=== PATIENT | female | born 1975 | race Two or more races ===

== ENCOUNTER 2024-12-22 23:03 | Emergency (ER) | payer MEDICARE, MEDICAID, SELFPAY ==
[2024-12-22 23:11] VITALS: BP 115/57; PULSE 86; RESP 18; TEMP 36.7; O2SAT 94; BMI 29.3
--- OUTSIDE RECORDS SUMMARY | 2024-12-23 00:33 | XMS_ITS | Encounter Summary ---
Author Organization [facility] Address [address] [place] [address] Care Team Providers Care Accelerator Systems Director Name Role Phone Negin Yi MD Primary Care Provider Cecilia Aguilar MD Primary Care Provider [phone] Reason for Visit * Reason Onset Date Comments medication problems 07/07/2018 Encounter Details Date Type Department Care Team Description 07/07/2018 Telephone Internal Medicine - [address], [address] [place] [address] Negin Yi MD medication problems Social History Tobacco Use Types Packs/Day Years Used Date Smoking Tobacco: Every Day Cigarettes 0.3 11 Smokeless Tobacco: Never Alcohol Use Standard Drinks/Week Comments Yes 0 (1 standard drink = 0.6 oz pur e alcohol) occ Sex Assigned at Date Recorded Not on file documented as of this encounter Miscellaneous Notes * Telephone Encounter - Yevgeniy Martines M.A. - 08/04/2018 3:07 PM EDT Lst seen 06/03/18 F/up 10/25/18 with you * Telephone Encounter - Negin Yi MD - 07/29/2018 1:31 PM EDT Lets enter it electronically * Telephone Encounter - Yevgeniy Martines M.A. - 07/28/2018 2:47 PM EDT Please advise * Telephone Encounter - Krissy Abdi - 07/20/2018 3:48 PM EDT Patient advising that previously the Vitamen B that Dr. Yi prescribed ( Vitamin B-12 1000 MCG Oral Tablet; TAKE 1 TABLET DAILY DIRECTED; She says that this was covered in the past (2014) and that [facility] * Telephone Encounter - Savanah Andre - 07/14/2018 10:07 AM EDT Pt was at the [address] [place] [address] front desk coordinator. Notify us that the insurance don't cover her vitamer D Prescription can they send to the pharmacy an alternative. * Telephone Encounter - Yevgeniy Martines M.A. - 07/07/2018 3:20 PM EDT Please advise * Telephone Encounter - Rome Hernandez - 07/07/2018 1:41 PM EDT What is the name of the medication patient is having a problem with?: vitamin d What is the problem?: insurance doesn't cover can we send an alternative Is the patient calling about the problem? YES If the patient is not the caller who is? Is this a NEW medication?: How long has the patient been taking this medication? Who prescribed this medication for the patient? Negin Yi Who is patients PCP?: Negin Yi [place] / Plan[place] / Product Type: MEDICARE [id number] documented in this encounter Plan of Treatment Not on file documented as of this encounter Visit Diagnoses Diagnosis Memory loss- Primary documented in this encounter Care Teams Accelerator Systems Director Relationship Specialty Start Date End Date Negin Yi MD PCP - General Internal Medicine 12/01/17 11/24/18 Cecilia Bhakta MD PCP - General Internal Medicine 11/25/18 documented as of this encounter
--- OUTSIDE RECORDS SUMMARY | 2024-12-23 00:33 | XMS_ITS | Encounter Summary ---
Author Organization [facility] Address [address] [place] [address] Care Team Providers Care Career Services Director Name Role Phone eCcilia Bhakta MD Primary Care Provider [phone] Reason for Visit * Reason Onset Date Comments Error 11/25/2023 Encounter Details Date Type Department Care Team Description 11/25/2023 Telephone Pulmonology - [place] 175 [facility] [address] [place] [address] Kitty Light MD [address] [place] [address] Error Social History Tobacco Use Types Packs/Day Years Used Date Smoking Tobacco: Every Day Cigarettes 0.3 11 Smokeless Tobacco: Never Comments:1 pack lasts 2 days . Alcohol Use Standard Drinks/Week Comments Not Currently 0 (1 standard drink = 0.6 oz pur e alcohol) occ Sex Assigned at Date Recorded Not on file documented as of this encounter Plan of Treatment Not on file documented as of this encounter Visit Diagnoses Not on filedocumented in this encounter Care Teams Career Services Director Relationship Specialty Start Date End Date Cecilia Bhakta MD PCP - General Internal Medicine 11/25/18 documented as of this encounter
--- OUTSIDE RECORDS SUMMARY | 2024-12-23 00:33 | XMS_ITS | Encounter Summary ---
Author Organization [facility] Address [address] [place] [address] Care Team Providers Care Auto Parts Salesperson Name Role Phone Cecilia Bhakta MD Primary Care Provider [phone] Reason for Visit * Reason Onset Date Comments Provider Call Back 08/20/2020 Encounter Details Date Type Department Care Team Description 08/20/2020 Telephone Internal Medicine - [address], [address] [place], [place] [id number] Cecilia Bhakta MD [address] [place] [phone] Provider Call Back Social History Tobacco Use Types Packs/Day Years Used Date Smoking Tobacco: Every Day Cigarettes 0.3 11 Smokeless Tobacco: Never Comments:1 pack lasts 2 days Alcohol Use Standard Drinks/Week Comments Yes 0 (1 standard drink = 0.6 oz pur e alcohol) occ Sex Assigned at Date Recorded Not on file documented as of this encounter Miscellaneous Notes * Telephone Encounter - Quin Ann M.A. - 08/20/2020 2:51 PM EDT Scheduled for telehealth visit September 13 @ 9:30AM. * Telephone Encounter - Cecilia Bhakta MD - 08/20/2020 2:09 PM EDT September either audio OR in person visit for follow-up * Telephone Encounter - Quin Ann M.A. - 08/20/2020 1:26 PM EDT [facility] notes found on your desk for review tomorrow. * Telephone Encounter - Quin Ann M.A. - 08/20/2020 1:08 PM EDT Pls advise, ortho referral pended (no preference where), dx lower back pain, went to the [facility] ER 3wks due to back pain/swelling; was given muscle relaxer but it's not working, has seen PT already but states it does not help, imaging is recommended. * Telephone Encounter - Rob Rob - 08/20/2020 12:14 PM EDT Caller requesting call back from provider: Is the caller the patient? YES If caller is not the patient, what is the callers name? N/A Callers relationship to patient? N/A If person calling is not the patient themselves, is there a verbal release in FYI or permanent comments for this person: NO Reason for call back: Patient needs an order to see ortho and may need a MRI also. Has ortho appt for 09/26/20 Caller offered to speak with the nurse for assistance: YES Response: Patient offered to speak with nurse for assistance and patient agreed. Message forwarded to nurse. documented in this encounter Plan of Treatment Not on file documented as of this encounter Visit Diagnoses Not on filedocumented in this encounter Care Teams Auto Parts Salesperson Relationship Specialty Start Date End Date Cecilia Bhakta MD PCP - General Internal Medicine 11/25/18 documented as of this encounter
--- OUTSIDE RECORDS SUMMARY | 2024-12-23 00:33 | XMS_ITS | Encounter Summary ---
Author Organization [facility] Address [address] [place] [address] Care Team Providers Care Radiosonde Specialist Name Role Phone Casey Pritchett MD Primary Care Provider Unavail able Jonathon Ariza MD Primary Care Provider [phone] Negin Yi MD Primary Care Provider Unava ilable Cecilia Bhakta MD Primary Care Provider [phone] Encounter Details Date Type Department Care Team Description 11/25/2012 Supervisor Pyrotechnic Loading Report Medical Records [address] [place] [address] Radha Quarles NP Social History Tobacco Use Types Packs/Day Years Used Date Smoking Tobacco: Never Assessed Sex Assigned at Date Recorded Not on file documented as of this encounter Plan of Treatment Not on file documented as of this encounter Visit Diagnoses Not on filedocumented in this encounter Care Teams Radiosonde Specialist Relationship Specialty Start Date End Date Casey Pritchett MD PCP - General Internal Medicine 11/24/12 02/06/15 Jonathon Ariza MD [address] [place] [address] PCP - General Internal Medicine 02/07/15 11/30/17 Negin Yi MD [address] [place] [address] PCP - General Internal Medicine 12/01/17 11/24/18 Cecilia Bhakta MD [address] [place] [id number] PCP - General Internal Medicine 11/25/18 documented as of this encounter
--- OUTSIDE RECORDS SUMMARY | 2024-12-23 00:33 | XMS_ITS | Encounter Summary ---
Author Organization [facility] Address [address] [place] [address] Care Team Providers Care Roller Print Tender Name Role Phone Casey Pritchett MD Primary Care Provider [facility] able Jonathon Ariza MD Primary Care Provider [phone] Negin Yi MD Primary Care Provider Unava ilable Cecilia Bhakta MD Primary Care Provider [phone] Encounter Details Date Type Department Care Team Description 06/07/2013 Crepe Sole Wire Brusher Report Medical Records [address] [place] [address] Radha Quarles NP Social History Tobacco Use Types Packs/Day Years Used Date Smoking Tobacco: Every Day Cigarettes 0.5 Smokeless Tobacco: Never Alcohol Use Standard Drinks/Week Comments Yes 0 (1 standard drink = 0.6 oz pur e alcohol) occ Sex Assigned at Date Recorded Not on file documented as of this encounter Plan of Treatment Not on file documented as of this encounter Visit Diagnoses Not on filedocumented in this encounter Care Teams Roller Print Tender Relationship Specialty Start Date End Date Casey Pritchett MD PCP - General Internal Medicine 11/24/12 02/06/15 Jonathon Ariza MD [address] [place] [address] PCP - General Internal Medicine 02/07/15 11/30/17 Negin Yi MD [address] [place] [address] PCP - General Internal Medicine 12/01/17 11/24/18 Cecilia Bhakta MD [address] [place] [address] PCP - General Internal Medicine 11/25/18 documented as of this encounter
--- OUTSIDE RECORDS SUMMARY | 2024-12-23 00:33 | XMS_ITS | Encounter Summary ---
Author Organization [facility] Address [address] [place] [address] Care Team Providers Care Card Sorter Name Role Phone Cecilia Bhakta MD Primary Care Provider [phone] Reason for Visit * Reason Onset Date Comments Provider Call Back 06/30/2022 Diabetes info rmation requested Encounter Details Date Type Department Care Team Description 06/30/2022 Telephone Internal Medicine - [address], [address] [place] [address] Cecilia Bhakta MD [address] [place] [phone] Provider Call Back (Diabetes information requested ) Social History Tobacco Use Types Packs/Day Years Used Date Smoking Tobacco: Every Day Cigarettes 0.3 11 Smokeless Tobacco: Never Comments:1 pack lasts 2 days Alcohol Use Standard Drinks/Week Comments Not Currently 0 (1 standard drink = 0.6 oz pur e alcohol) occ Sex Assigned at Date Recorded Not on file COVID-19 Exposure Response Date Recorded In the last 10 days, have yo u been in contact with someone who was confirmed or suspected to have Coronavirus/COVID-19? No / Unsure 07/03/2022 11:58 AM EDT documented as of this encounter Miscellaneous Notes * Telephone Encounter - Cecilia Bhakta MD - 07/02/2022 10:57 AM EDT Patient has an appointment with me tomorrow, will talk to her then * Telephone Encounter - Eugene Krause - 06/30/2022 12:04 PM EDT Patient requesting more information regarding diabetes such as what she can injest and what to avoid. documented in this encounter Plan of Treatment Not on file documented as of this encounter Visit Diagnoses Not on filedocumented in this encounter Care Teams Card Sorter Relationship Specialty Start Date End Date Cecilia Bhakta MD PCP - General Internal Medicine 11/25/18 documented as of this encounter
--- OUTSIDE RECORDS SUMMARY | 2024-12-23 00:33 | XMS_ITS | Encounter Summary ---
Author Organization [facility] Address [address] [place] [address] Care Team Providers Care Brick Siding Applicator Name Role Phone Negin Yi MD Primary Care Provider Cecilia Aguilar MD Primary Care Provider [phone] Reason for Visit * Reason Comments E-prescribe Rx Request Encounter Details Date Type Department Care Team Description 05/28/2018 [facility] Internal Medicine [address], [address] [place] [address] Negin Yi MD E-prescribe Rx Request Social History Tobacco Use Types Packs/Day Years Used Date Smoking Tobacco: Every Day Cigarettes 0.3 11 Smokeless Tobacco: Never Alcohol Use Standard Drinks/Week Comments Yes 0 (1 standard drink = 0.6 oz pur e alcohol) occ Sex Assigned at Date Recorded Not on file documented as of this encounter Miscellaneous Notes * Telephone Encounter - Niesha MckeonPBaoNBao - 05/28/2018 1:23 PM EST appt 06/03/2018 Negin Yi Sick visit 01/2018 documented in this encounter Plan of Treatment Not on file documented as of this encounter Visit Diagnoses Not on filedocumented in this encounter Care Teams Brick Siding Applicator Relationship Specialty Start Date End Date Negin Yi MD PCP - General Internal Medicine 12/01/17 11/24/18 Cecilia Bhakta MD PCP - General Internal Medicine 11/25/18 documented as of this encounter
--- OUTSIDE RECORDS SUMMARY | 2024-12-23 00:33 | XMS_ITS | Encounter Summary ---
Author Organization [facility] Address [address] [place] [address] Care Team Providers Care Embroidery Supervisor Name Role Phone Cecilia Bhakta MD Primary Care Provider [phone] Reason for Visit * Reason Onset Date Comments Faxed Refill 04/09/2023 Encounter Details Date Type Department Care Team Description 04/09/2023 Refill Internal Medicine - [place] 175 [facility], [address] [place] [address] Cecilia Bhakta MD [address] [place] [phone] Faxed Refill Social History Tobacco Use Types Packs/Day Years Used Date Smoking Tobacco: Every Day Cigarettes 0.3 11 Smokeless Tobacco: Never Comments:1 pack lasts 2 days . Alcohol Use Standard Drinks/Week Comments Not Currently 0 (1 standard drink = 0.6 oz pur e alcohol) occ Sex Assigned at Date Recorded Not on file documented as of this encounter Miscellaneous Notes * Telephone Encounter - Eun Hawthorne - 04/09/2023 1:59 PM EST Last filled 09/24/2022 * Telephone Encounter - Sophie Urias - 04/09/2023 10:58 AM EST [place] 07/03/2022 Nov documented in this encounter Plan of Treatment Not on file documented as of this encounter Visit Diagnoses Diagnosis Primary insomnia Persistent disorder of initiating or maintaining sleep documented in this encounter Care Teams Embroidery Supervisor Relationship Specialty Start Date End Date Cecilia Bhakta MD PCP - General Internal Medicine 11/25/18 documented as of this encounter
--- OUTSIDE RECORDS SUMMARY | 2024-12-23 00:33 | XMS_ITS | Encounter Summary ---
Author Organization [facility] Address [address] [place] [address] Care Team Providers Care Switching Operator Name Role Phone Cecilia Bhakta MD Primary Care Provider [phone] Reason for Visit * Reason Onset Date Comments refill request 09/27/2020 Encounter Details Date Type Department Care Team Description 09/27/2020 Telephone Internal Medicine - [place] 175 [facility], [address] [place], [place] [phone] Cecilia Bhakta MD [address] [place] [phone] refill request Social History Tobacco Use Types Packs/Day Years Used Date Smoking Tobacco: Every Day Cigarettes 0.3 11 Smokeless Tobacco: Never Comments:1 pack lasts 2 days Alcohol Use Standard Drinks/Week Comments Yes 0 (1 standard drink = 0.6 oz pur e alcohol) occ Sex Assigned at Date Recorded Not on file COVID-19 Exposure Response Date Recorded In the last month, have you been in contact with someone who was confirmed or suspected to have Coronavirus / COVID-19? No / Unsure 09/27/2020 10:54 AM EDT documented as of this encounter Miscellaneous Notes * Telephone Encounter - June Ruano - 09/27/2020 9:36 AM EDT Magdy 09/13/20 documented in this encounter Plan of Treatment Not on file documented as of this encounter Visit Diagnoses Not on filedocumented in this encounter Care Teams Switching Operator Relationship Specialty Start Date End Date Cecilia Bhakta MD PCP - General Internal Medicine 11/25/18 documented as of this encounter
--- OUTSIDE RECORDS SUMMARY | 2024-12-23 00:33 | XMS_ITS | Encounter Summary ---
Author Organization [facility] Address [address] [place] [address] Care Team Providers Care Cage Shift Manager Name Role Phone Cecilia Bhakta MD Primary Care Provider [phone] Reason for Visit * Reason Onset Date Comments DME Request 01/12/2023 Encounter Details Date Type Department Care Team Description 01/12/2023 Telephone Pulmonology - [place] [address] [facility] [address] [place] [address] Kitty Light MD [address] [place] [phone] DME Request Social History Tobacco Use Types Packs/Day [...] suspected to have Coronavirus/COVID-19? No / Unsure 01/09/2023 9:08 AM EDT documented as of this encounter Miscellaneous Notes * Telephone Encounter - Florecita Pinon - 01/12/2023 1:36 PM EDT Received dme fax from [facility] pharmacy confirmation of order NOV 01/15/23 CASE 07/11/22 documented in this encounter Plan of Treatment Not on file documented as of this encounter Visit Diagnoses Not on filedocumented in this encounter Care Teams Cage Shift Manager Relationship Specialty Start Date End Date Cecilia Bhakta MD PCP - General Internal Medicine 11/25/18 documented as of this encounter
--- OUTSIDE RECORDS SUMMARY | 2024-12-23 00:33 | XMS_ITS | Encounter Summary ---
Author Organization [facility] Address [address] [place] [address] Care Team Providers Care Livestock Breeder Name Role Phone Cecilia Bhakta MD Primary Care Provider [phone] Reason for Visit * Reason Onset Date Comments refill request 12/29/2019 Encounter Details Date Type Department Care Team Description 12/29/2019 Refill Internal Medicine - [address], [address] [place], [place] [id number] Cecilia Bhakta MD [address] [place] [phone] refill request Social History Tobacco Use Types Packs/Day Years Used Date Smoking Tobacco: Every Day Cigarettes 0.3 11 Smokeless Tobacco: Never Alcohol Use Standard Drinks/Week Comments Yes 0 (1 standard drink = 0.6 oz pur e alcohol) occ Sex Assigned at Date Recorded Not on file documented as of this encounter Miscellaneous Notes * Telephone Encounter - Shey Martines M.A. - 12/29/2019 4:08 PM EDT Lab Results Component Value Date NA 138 11/25/2018 K 4.2 11/25/2018 CO2 29 11/25/2018 CL 103 11/25/2018 BUN 10 11/25/2018 CREAT 0.97 11/25/2018 GLU 159 11/25/2018 ALB 3.7 11/25/2018 SGOT 19 11/25/2018 SGPT 25 11/25/2018 TBILI 0.2 11/25/2018 ALKPHOS 137 11/25/2018 TP 6.7 11/25/2018 CA 8.9 11/25/2018 GFR > 60 11/25/2018 * Telephone Encounter - Gemini Emil - 12/29/2019 2:56 PM EDT CASE [id number] NONE 30 day supply documented in this encounter Plan of Treatment Not on file documented as of this encounter Visit Diagnoses Not on filedocumented in this encounter Care Teams Livestock Breeder Relationship Specialty Start Date End Date Cecilia Bhakta MD PCP - General Internal Medicine 11/25/18 documented as of this encounter
--- OUTSIDE RECORDS SUMMARY | 2024-12-23 00:33 | XMS_ITS | Encounter Summary ---
Author Organization [facility] Address [address] [place] [address] Care Team Providers Care Wired Music Operator Name Role Phone Negin Yi MD Primary Care Provider Cecilia Aguilar MD Primary Care Provider [phone] Encounter Details Date Type Department Care Team Description 02/18/2018 Release of Information Medical Records [address] [place] [address] Abstract, Provider Social History Tobacco Use Types Packs/Day Years [...] on filedocumented in this encounter Care Teams Wired Music Operator Relationship Specialty Start Date End Date Negin Yi MD PCP - General Internal Medicine 12/01/17 11/24/18 Cecilia Bhakta MD PCP - General Internal Medicine 11/25/18 documented as of this encounter
--- OUTSIDE RECORDS SUMMARY | 2024-12-23 00:33 | XMS_ITS | Encounter Summary ---
Author Organization [facility] Address [address] [place] [address] Care Team Providers Care Technical Support Agent Name Role Phone Cecilia Bhakta MD Primary Care Provider [phone] Reason for Visit * Reason Comments E-prescribe Rx Request Encounter Details Date Type Department Care Team Description 11/13/2023 Refill Pulmonology - [place] 175 [facility] [address] [place] [phone] Kitty Light MD [address] [place] [phone] E-prescribe Rx Request Social History Tobacco Use [...] encounter Miscellaneous Notes * Telephone Encounter - Maye Latham - 11/13/2023 2:00 PM EDT NOV- 12/18/23 CASE- 07/11/22 documented in this encounter Plan of Treatment Not on file documented as of this encounter Visit Diagnoses Diagnosis MARK (obstructive sleep apnea) Obstructive sleep apnea (adult) (pediatric) documented in this encounter Care Teams Technical Support Agent Relationship Specialty Start Date End Date Cecilia Bhakta MD PCP - General Internal Medicine 11/25/18 documented as of this encounter
--- OUTSIDE RECORDS SUMMARY | 2024-12-23 00:33 | XMS_ITS | Encounter Summary ---
Author Organization [facility] Address [address] [place] [address] Care Team Providers Care Resistance Machine Welder Setter Name Role Phone Cecilia Bhakta MD Primary Care Provider [phone] Encounter Details Date Type Department Care Team Description 06/06/2020 Computer Programming Supervisor Report Medical Records [address] [place] [address] Rehab., [place] Social History Tobacco Use Types Packs/Day Years [...] or suspected to have Coronavirus / COVID-19? Unable to assess 05/21/2020 8:24 AM EST documented as of this encounter Plan of Treatment Not on file documented as of this encounter Visit Diagnoses Not on filedocumented in this encounter Care Teams Resistance Machine Welder Setter Relationship Specialty Start Date End Date Cecilia Bhakta MD PCP - General Internal Medicine 11/25/18 documented as of this encounter
--- OUTSIDE RECORDS SUMMARY | 2024-12-23 00:33 | XMS_ITS | Encounter Summary ---
Author Organization [facility] Address [address] [place] [address] Care Team Providers Care Risk Manager Name Role Phone Casey Pritchett MD Primary Care Provider [facility] able Jonathon Ariza MD Primary Care Provider [phone] Negin Yi MD Primary Care Provider Unava arable Cecilia Bhakta MD Primary Care Provider [phone] Encounter Details Date Type Department Care Team Description 12/15/2012 [place] Director Report Medical Records [address] [place] [address] Social History Tobacco Use Types Packs/Day Years Used Date Smoking Tobacco: Every Day Cigarettes 0.5 Alcohol Use Standard Drinks/Week Comments Yes 0 (1 standard drink = 0.6 oz pur e alcohol) occ Sex Assigned at Date Recorded Not on file documented as of this encounter Plan of Treatment Not on file documented as of this encounter Visit Diagnoses Not on filedocumented in this encounter Care Teams Risk Manager Relationship Specialty Start Date End Date Casey Pritchett MD PCP - General Internal Medicine 11/24/12 02/06/15 Jonathon Ariza MD [address] [place] [id number] PCP - General Internal Medicine 02/07/15 11/30/17 Negin Yi MD [address] [place] [address] PCP - General Internal Medicine 12/01/17 11/24/18 Cecilia Bhakta MD [address] [place] [id number] PCP - General Internal Medicine 11/25/18 documented as of this encounter
--- OUTSIDE RECORDS SUMMARY | 2024-12-23 00:33 | XMS_ITS | Encounter Summary ---
Author Organization [facility] Address [address] [place] [address] Care Team Providers Care Art Sales Consultant Name Role Phone Cecilia Bhakta MD Primary Care Provider [phone] Encounter Details Date Type Department Care Team Description 05/26/2023 Orders Only Medical Records [address] [place] [address] Cecilia Bhakta MD [address] [place] [phone] Social History Tobacco Use Types Packs/Day Years [...] on file documented as of this encounter Procedures Procedure Name Priority Date/Time Associated Diagnosis Comments OUTSIDE MAMMO Routine 05/14/2023 documented in this encounter Results * OUTSIDE MAMMO (05/14/2023) Cecilia Bhakta MD RADIOLOGY documented in this encounter Visit Diagnoses Not on filedocumented in this encounter Care Teams Art Sales Consultant Relationship Specialty Start Date End Date Cecilia Bhakta MD PCP - General Internal Medicine 11/25/18 documented as of this encounter
--- OUTSIDE RECORDS SUMMARY | 2024-12-23 00:33 | XMS_ITS | Encounter Summary ---
Author Organization [employer] [facility] Address [address] [place] [address] Care Team Providers Care Missile Inspector Name Role Phone Cecilia Bhakta MD Primary Care Provider [phone] Encounter Details Date Type Department Care Team Description 01/21/2024 Orders Only Internal Medicine - [place] [address] [facility], [address] [place] [address] Cecilia Bhakta MD [address] [place] [phone] Social History Tobacco Use Types Packs/Day Years [...] on filedocumented in this encounter Care Teams Missile Inspector Relationship Specialty Start Date End Date Cecilia Bhakta MD PCP - General Internal Medicine 11/25/18 documented as of this encounter
--- OUTSIDE RECORDS SUMMARY | 2024-12-23 00:33 | XMS_ITS | Encounter Summary ---
Author Organization [employer] [facility] Address [address] [place] [address] Care Team Providers Care Truck Dock Material Mover Name Role Phone Cecilia Bhakta MD Primary Care Provider [phone] Encounter Details Date Type Department Care Team Description 06/24/2022 Telephone Internal Medicine - [place] [address] [facility], [address] [place], [place] [id number] Cecilia Bhakta MD [address] [place] [phone] Social History Tobacco Use Types Packs/Day [...] suspected to have Coronavirus/COVID-19? No / Unsure 06/16/2022 12:39 PM EDT documented as of this encounter Plan of Treatment Not on file documented as of this encounter Visit Diagnoses Not on filedocumented in this encounter Care Teams Truck Dock Material Mover Relationship Specialty Start Date End Date Cecilia Bhakta MD PCP - General Internal Medicine 11/25/18 documented as of this encounter
--- OUTSIDE RECORDS SUMMARY | 2024-12-23 00:33 | XMS_ITS | Encounter Summary ---
Author Organization [facility] Address [address] [place] [address] Care Team Providers Care Finish Off Operator Name Role Phone Cecilia Bhakta MD Primary Care Provider [phone] Encounter Details Date Type Department Care Team Description 05/17/2020 Orders Only Physiatry - [place] [address] [place] [address] Álvaro Hartman PA-C Chronic low back pain, unspecified back pain laterality, unspecified whether sciatica present Social History Tobacco Use Types Packs/Day Years [...] have Coronavirus / COVID-19? No / Unsure 05/14/2020 2:41 PM EST documented as of this encounter Plan of Treatment Not on file documented as of this encounter Procedures Procedure Name Priority Date/Time Associated Diagnosis Comments MRI OF LUMBAR SPINE NO CONTRAST Routine 05/16/2020 Chronic low back pain, unspecified back pain laterality, unspecified whether sciatica present documented in this encounter Results * MRI OF LUMBAR SPINE NO CONTRAST (05/16/2020) Álvaro Hartman PA-C MRI [facility] [address] [facility] documented in this encounter Visit Diagnoses Diagnosis Chronic low back pain, unspecified back pain laterality, unspecified whether sciatica present documented in this encounter Care Teams Finish Off Operator Relationship Specialty Start Date End Date Cecilia Bhakta MD PCP - General Internal Medicine 11/25/18 documented as of this encounter
--- OUTSIDE RECORDS SUMMARY | 2024-12-23 00:34 | XMS_ITS | Encounter Summary ---
Author Organization [facility] Address [address] [place] [address] Care Team Providers Care Licensed Optician Name Role Phone Casey Pritchett MD Primary Care Provider [facility] able Jonathon Ariza MD Primary Care Provider [phone] Negin Yi MD Primary Care Provider Normava Cecilia Bosch MD Primary Care Provider [phone] Encounter Details Date Type Department Care Team Description 01/20/2014 Shingle Inspector Report Medical Records [address] [place] [address] Radha Quarles NP Social History Tobacco Use [...] on filedocumented in this encounter Care Teams Licensed Optician Relationship Specialty Start Date End Date Caesy Pritchett MD PCP - General Internal Medicine 11/24/12 02/06/15 Jonathon Ariza MD [address] [place] [address] PCP - General Internal Medicine 02/07/15 11/30/17 Negin Yi MD [address] [place] [address] PCP - General Internal Medicine 12/01/17 11/24/18 Cecilia Bhakta MD [address] [place] [address] PCP - General Internal Medicine 11/25/18 documented as of this encounter
--- OUTSIDE RECORDS SUMMARY | 2024-12-23 00:34 | XMS_ITS | Encounter Summary ---
Author Organization [facility] Address [address] [place] [address] Care Team Providers Care Web Site Project Manager Name Role Phone Casey Pritchett MD Primary Care Provider [facility] able Jonathon Ariza MD Primary Care Provider [phone] Negin Yi MD Primary Care Provider Unava ilCecilia Brandt MD Primary Care Provider [phone] Encounter Details Date Type Department Care Team Description 10/20/2013 Manager Statistical Report Medical Records [address] [place] [address] Radha Quarles NP Social History Tobacco Use [...] on filedocumented in this encounter Care Teams Web Site Project Manager Relationship Specialty Start Date End Date Casey Pritchett MD PCP - General Internal Medicine 11/24/12 02/06/15 Jonathon Ariza MD [address] [place] [address] PCP - General Internal Medicine 02/07/15 11/30/17 Negin Yi MD [address] [place] [address] PCP - General Internal Medicine 12/01/17 11/24/18 Cecilia Bhakta MD [address] [place] [address] PCP - General Internal Medicine 11/25/18 documented as of this encounter
--- OUTSIDE RECORDS SUMMARY | 2024-12-23 00:34 | XMS_ITS | Encounter Summary ---
Author Organization [facility] Address [address] [place] [address] Care Team Providers Care Filling Hand Name Role Phone Cecilia Bhakta MD Primary Care Provider [phone] Encounter Details Date Type Department Care Team Description 08/12/2021 Orders Only Medical Records [address] [place] [address] Jaguar Rascon PA-C Social History Tobacco Use Types Packs/Day Years [...] suspected to have Coronavirus/COVID-19? No / Unsure 08/02/2021 4:11 PM EDT documented as of this encounter Plan of Treatment Not on file documented as of this encounter Procedures Procedure Name Priority Date/Time Associated Diagnosis Comments OUTSIDE SLEEP STUDY Routine 07/11/2021 documented in this encounter Results * OUTSIDE SLEEP STUDY (07/11/2021) Jaguar Rascon PA-C PULMONOLOGY documented in this encounter Visit Diagnoses Not on filedocumented in this encounter Care Teams Filling Hand Relationship Specialty Start Date End Date Cecilia Bhakta MD PCP - General Internal Medicine 11/25/18 documented as of this encounter
--- OUTSIDE RECORDS SUMMARY | 2024-12-23 00:34 | XMS_ITS | Encounter Summary ---
Author Organization [facility] Address [address] [place] [address] Care Team Providers Care Business Development Representative Name Role Phone Casey Pritchett MD Primary Care Provider [facility] able Jonathon Ariza MD Primary Care Provider [phone] Negin Yi MD Primary Care Provider Unava ohCecilia Brandt MD Primary Care Provider [phone] Encounter Details Date Type Department Care Team Description 07/18/2013 Business Doc Medical Records [address] [place] [address] Abstract, Provider Social History Tobacco Use Types [...] on filedocumented in this encounter Care Teams Business Development Representative Relationship Specialty Start Date End Date Casey Pritchett MD PCP - General Internal Medicine 11/24/12 02/06/15 Jonathon Ariza MD [address] [place] [id number] PCP - General Internal Medicine 02/07/15 11/30/17 Negin Yi MD [address] [place] [address] PCP - General Internal Medicine 12/01/17 11/24/18 Cecilia Bhakta MD [address] [place] [address] PCP - General Internal Medicine 11/25/18 documented as of this encounter
--- OUTSIDE RECORDS SUMMARY | 2024-12-23 00:34 | XMS_ITS | Encounter Summary ---
Author Organization [facility] Address [address] [place] [address] Care Team Providers Care Soil Conservation Aide Name Role Phone Cecilia Bhakta MD Primary Care Provider [phone] Reason for Visit * Reason Onset Date Comments Medication 02/18/2019 Encounter Details Date Type Department Care Team Description 02/18/2019 Telephone Internal Medicine - [address], [address] [place], [place] [phone] Cecilia Bhakta MD [address] [place] [phone] Medication Social History Tobacco Use Types Packs/Day Years Used Date Smoking Tobacco: Every Day Cigarettes 0.3 11 Smokeless Tobacco: Never Alcohol Use Standard Drinks/Week Comments Yes 0 (1 standard drink = 0.6 oz pur e alcohol) occ Sex Assigned at Date Recorded Not on file documented as of this encounter Miscellaneous Notes * Telephone Encounter - Cecilia Bhakta MD - 02/23/2019 2:13 PM EST Sent trazodone * Telephone Encounter - Yevgeniy Martines M.A. - 02/22/2019 3:29 PM EST PLEASE ADVISE * Telephone Encounter - Florecita Burch - 02/22/2019 11:37 AM EST Patient calling checking on status * Telephone Encounter - Faby Urena M.A. - 02/22/2019 10:32 AM EST Please send trazadone to the pharmacy * Telephone Encounter - Racheal Lew - 02/21/2019 10:07 AM EST Patient is calling on status regarding her medication. She states that she saw Dr. Bhakta on 02/18/19 and doctor was changing her medication from mirtazapine (REMERON) 15 MG tablet to trazodone 50 mg but the pharmacy has not received anything as of yet. Patient states she needs her medication as soon as possible. Arcadio joe * Telephone Encounter - Justine Robbins - 02/18/2019 1:32 PM EST The patient and Dr. Bhakta spoke about the patient gettting put on trazadone to help her sleep atnight. Patient called us to see if the doctor put in the medication, the medication is not in her chart. Please advise. documented in this encounter Plan of Treatment Not on file documented as of this encounter Visit Diagnoses Not on filedocumented in this encounter Care Teams Soil Conservation Aide Relationship Specialty Start Date End Date Cecilia Bhakta MD PCP - General Internal Medicine 11/25/18 documented as of this encounter
--- OUTSIDE RECORDS SUMMARY | 2024-12-23 00:34 | XMS_ITS | Encounter Summary ---
Author Organization [facility] Address [address] [place] [address] Care Team Providers Care Lastex Thread Winder Name Role Phone Casey Pritchett MD Primary Care Provider [facility] able Jonathon Ariza MD Primary Care Provider [phone] Negin Yi MD Primary Care Provider Unava ilable Cecilia Bhakta MD Primary Care Provider [phone] Encounter Details Date Type Department Care Team Description 01/02/2015 Hearing Aid Assistant Report Medical Records [address] [place] [address] Denys Campo Social History Tobacco Use Types Packs/Day Years [...] on filedocumented in this encounter Care Teams Lastex Thread Winder Relationship Specialty Start Date End Date Casey Pritchett MD PCP - General Internal Medicine 11/24/12 02/06/15 Jonathon Ariza MD [address] [place], [place] [phone] PCP - General Internal Medicine 02/07/15 11/30/17 Negin Yi MD [address] [place] [address] PCP - General Internal Medicine 12/01/17 11/24/18 Cecilia Bhakta MD [address] [place] [address] [place] [address] PCP - General Internal Medicine 11/25/18 documented as of this encounter
--- OUTSIDE RECORDS SUMMARY | 2024-12-23 00:34 | XMS_ITS | Encounter Summary ---
Author Organization [employer] [facility] Address [address] [place] [address] Care Team Providers Care Mica Machine Operator Name Role Phone Cecilia Bhakta MD Primary Care Provider [phone] Encounter Details Date Type Department Care Team Description 12/31/2021 Care Manager Cna Report Medical Records [address] [place] [address] Abstract, Provider Social History Tobacco Use Types [...] on filedocumented in this encounter Care Teams Mica Machine Operator Relationship Specialty Start Date End Date Cecilia Bhakta MD PCP - General Internal Medicine 11/25/18 documented as of this encounter
--- OUTSIDE RECORDS SUMMARY | 2024-12-23 00:34 | XMS_ITS | Encounter Summary ---
Author Organization [facility] Address [address] [place] [address] Care Team Providers Care Cigar Bander Hand Name Role Phone Casey Pritchett MD Primary Care Provider [facility] Jonathon Clarke MD Primary Care Provider [phone] Negin Yi MD Primary Care Provider Cecilia Aguilar MD Primary Care Provider [phone] Reason for Visit * Reason Onset Date Comments Shoulder Pain 01/27/2014 right Encounter Details Date Type Department Care Team Description 01/27/2014 Telephone Adult Medicine - [place] [address] [place] [address] Casey Pritchett MD Shoulder Pain (right ) Social History Tobacco Use Types Packs/Day Years Used Date Smoking Tobacco: Every Day Cigarettes 0.3 11 Smokeless Tobacco: Never Alcohol Use Standard Drinks/Week Comments Yes 0 (1 standard drink = 0.6 oz pur e alcohol) occ Sex Assigned at Date Recorded Not on file documented as of this encounter Miscellaneous Notes * Telephone Encounter - Emely Sr M.A. - 01/27/2014 3:26 PM EDT Spoke with pt and she is requesting a appt for her shoulder pain. I advised her about UC in [place] on the weekends and she agreed to make her self an appt tomorrow with UC. * Telephone Encounter - Hetal Gutierrez NP - 01/27/2014 2:51 PM EDT Will not prescribe narcotic without in office follow up, especially since a month since visit. * Telephone Encounter - Kim Deshpande R.N. - 01/27/2014 2:34 PM EDT Seen by Hetal 12/29/13 for chronic shoulder pain Pt continue to c/o shoulder pain she was seen in ER and given Naprosyn , she stopped Motrin, Naprosyn isn't helping,she states she needs something for pain, she is uable to see ortho until the end of Feb. Please advise * Telephone Encounter - Colleen Sevilla - 01/27/2014 12:16 PM EDT EBOLA: Effective 01/11/14 If patient complains of a temperature greater than 101.5 ask if they have traveled to [place], [place], [place] or [place] or been in contact with anyone who has. Document responses in this message and send to triage. Symptoms patient is presenting: pt c/o right shoulder pain. States she saw Hetal for this earlier in the month and was rx'd motrin for the pain but it is not working. Looking to see if she can be rx'd something else. Please call How long has patient had these symptoms?: ongoing PCP: Casey Pritchett [place] / [place] / Product Type: [place]ICARE [id number] documented in this encounter Plan of Treatment Not on file documented as of this encounter Visit Diagnoses Not on filedocumented in this encounter Care Teams Cigar Bander Hand Relationship Specialty Start Date End Date Casey Pritchett MD PCP - General Internal Medicine 11/24/12 02/06/15 Jonathon Ariza MD [address] [place] [address] PCP - General Internal Medicine 02/07/15 11/30/17 Negin Yi MD [address] [place] [address] PCP - General Internal Medicine 12/01/17 11/24/18 Cecilia Bhakta MD [address] [place] [address] PCP - General Internal Medicine 11/25/18 documented as of this encounter
--- OUTSIDE RECORDS SUMMARY | 2024-12-23 00:34 | XMS_ITS | Encounter Summary ---
Author Organization [facility] Address [address] [place] [address] Care Team Providers Care Music Arranger Name Role Phone Negin Yi MD Primary Care Provider Cecilia Aguilar MD Primary Care Provider [phone] Encounter Details Date Type Department Care Team Description 12/25/2017 Orders Only Physiatry - [address] [address] Álvaro Hartman PA-C Pelvic mass in female (Primary Dx) Social History Tobacco Use Types Packs/Day Years Used Date Smoking Tobacco: Every Day Cigarettes 0.3 11 Smokeless Tobacco: Never Alcohol Use Standard Drinks/Week Comments Yes 0 (1 standard drink = 0.6 oz pur e alcohol) occ Sex Assigned at Date Recorded Not on file documented as of this encounter Plan of Treatment Not on file documented as of this encounter Visit Diagnoses Diagnosis Pelvic mass in female- Primary Abdominal or pelvic swelling, mass or lump, unspecified site documented in this encounter Care Teams Music Arranger Relationship Specialty Start Date End Date Negin Yi MD PCP - General Internal Medicine 12/01/17 11/24/18 Cecilia Bhakta MD PCP - General Internal Medicine 11/25/18 documented as of this encounter
--- OUTSIDE RECORDS SUMMARY | 2024-12-23 00:34 | XMS_ITS | Encounter Summary ---
Author Organization [facility] Address [address] [place] [address] Care Team Providers Care Process Helper Name Role Phone Casey Pritchett MD Primary Care Provider [facility] able Jonathon Ariza MD Primary Care Provider [phone] Negin Yi MD Primary Care Provider Unava Cecilia Bosch MD Primary Care Provider [phone] Encounter Details Date Type Department Care Team Description 11/03/2014 PLATFORM BEATER/MassPat Report Medical Records [address] [place] [address] Abstract, Provider Social History Tobacco Use Types [...] on filedocumented in this encounter Care Teams Process Helper Relationship Specialty Start Date End Date Casey Pritchett MD PCP - General Internal Medicine 11/24/12 02/06/15 Jonathon Ariza MD [address] [place] [address] PCP - General Internal Medicine 02/07/15 11/30/17 Negin Yi MD [address] [place] [address] PCP - General Internal Medicine 12/01/17 11/24/18 Cecilia Bhakta MD [address] [place] [address] PCP - General Internal Medicine 11/25/18 documented as of this encounter
--- OUTSIDE RECORDS SUMMARY | 2024-12-23 00:34 | XMS_ITS | Encounter Summary ---
Author Organization [facility] [facility] Address [address] [place] [address] Care Team Providers Care Digital Solution Architect Name Role Phone Cecilia Bhakta MD Primary Care Provider [phone] Encounter Details Date Type Department Care Team Description 09/24/2022 Refill Internal Medicine - [place] [address] [facility], [address] [place] [address] Jorge L Mcgrath MD [address] [place], [place] [phone] Social History Tobacco Use Types Packs/Day Years Used Date Smoking Tobacco: Every Day Cigarettes 0.3 11 Smokeless Tobacco: Never Comments:1 pack lasts 2 days . Alcohol Use Standard Drinks/Week Comments Not Currently 0 (1 standard drink = 0.6 oz pur e alcohol) occ Sex Assigned at Date Recorded Not on file documented as of this encounter Miscellaneous Notes * Telephone Encounter - Aliyah Blount - 09/24/2022 3:33 PM EDT Pended to pcp documented in this encounter Plan of Treatment Not on file documented as of this encounter Visit Diagnoses Diagnosis Primary insomnia Persistent disorder of initiating or maintaining sleep documented in this encounter Care Teams Digital Solution Architect Relationship Specialty Start Date End Date Cecilia Bhakta MD PCP - General Internal Medicine 11/25/18 documented as of this encounter
--- OUTSIDE RECORDS SUMMARY | 2024-12-23 00:34 | XMS_ITS | Encounter Summary ---
Author Organization [facility] Address [address] [place] [address] Care Team Providers Care Crystal Calibrator Name Role Phone Casey Pritchett MD Primary Care Provider [facility] able Jonathon Ariza MD Primary Care Provider [phone] Negin Yi MD Primary Care Provider Normava Cecilia Bosch MD Primary Care Provider [phone] Encounter Details Date Type Department Care Team Description 02/06/2015 Wire Drawing Machine Tender Report Medical Records [address] [place] [address] Radha Quarles NP Social History Tobacco Use [...] on filedocumented in this encounter Care Teams Crystal Calibrator Relationship Specialty Start Date End Date Casey Pritchett MD PCP - General Internal Medicine 11/24/12 02/06/15 Jonathon Ariza MD [address] [place] [address] PCP - General Internal Medicine 02/07/15 11/30/17 Negin Yi MD [address] [place] [address] PCP - General Internal Medicine 12/01/17 11/24/18 Cecilia Bhakta MD [address] [place] [address] PCP - General Internal Medicine 11/25/18 documented as of this encounter
[2024-12-23] MEDS: diazePAM 10 MG/2 ML CARTRIDGE 5 MG IVPUSH (01:23)
[2024-12-23 03:11] VITALS: BP 102/51; PULSE 72; RESP 16; TEMP 36.7; O2SAT 97
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
[2024-12-23 03:34] VITALS: BP 102/51; PULSE 72; RESP 16; TEMP 36.7; O2SAT 97
== END 2024-12-23 03:34 | disposition home or self-care (01) ==
PROVIDERS: Emergency Provider Student in an Organized Health Care Education/Training Program; PCP Internal Medicine
DX: R51.9 Headache, unspecified (principal); M79.10 Myalgia, unspecified site; R11.0 Nausea; M54.50 Low back pain, unspecified
CPT/HCPCS: 96361; 96374; 96375; 99284; J1885; J2405; J3360

== ENCOUNTER 2025-03-28 14:00 | Outpatient (AMB) | payer MEDICARE, MEDICAID, SELFPAY ==
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
--- OUTSIDE RECORDS SUMMARY | 2025-03-28 15:15 | XMS_ITS | Clinical Summary ---
Author Organization 175 [facility] Address [address] [place] [address] Phone Care Team Providers Care Slab Lifting Engineer Name Role Phone Cecilia Bhakta MD Primary Care Provider [phone] Allergies Active Allergy Reactions Criticality Noted Date Comments Amoxicillin 05/03/2024 Ceftriaxone 07/31/2020 Gabapentin 05/18/2018 intolerant Ibuprofen Nausea And Vomiting 12/17/2017 Medications ciprofloxacin (CIPRO) 500 mg tablet 01/25/20 23 Active metroNIDAZOLE (METROGEL) 0.75 % gel 04/07/19 24 Active metroNIDAZOLE (METROGEL) 0.75 % (37.5mg/5 gram) vaginal gel 04/08/19 24 Active omeprazole (PriLOSEC) [address] capsule Take 1 capsule (40 mg total) by mouth. 01/15/20 22 Active ondansetron ODT (ZOFRAN-ODT) 4 mg disintegrating tablet 01/25/20 23 Active oxyCODONE (ROXICODONE) 5 mg immediate release tablet 03/20/20 23 Active traZODone (DESYREL) 100 mg tablet Take 1 tab po qhs prn 04/09/19 24 Active cetirizine (ZyrTEC) 10 mg capsule Take 1 capsule (10 mg total) by mouth. 07/12/19 23 Active amoxicillin-clavu lanate (AUGMENTIN) 875-125 mg per tablet 10/20/19 24 Active COVID-19 antigen test ([facility] COVD Ag Card Home Tst) kit TEST DIRECTED TODAY 01/01/20 24 Active nicotine (NICODERM CQ) 14 mg/[address] 1 patch on the skin 1 (one) time each day at the same time. 30 patch 1 03/31/20 24 Active baclofen (LIORESAL) 10 mg tablet Take 1 tablet (10 mg total) by mouth 2 (two) times a day. 60 each 5 03/31/20 24 Active glipiZIDE (GLUCOTROL XL) 2.5 mg 24 hr tablet TAKE 1 TABLET(2.5 MG) BY MOUTH 1 TIME EACH DAY 30 tablet 2 04/04/20 24 Active lidocaine-menthol (Icy Hot Patch, lido-menthol,) 4-1 % adhesive patch,medicatedIn dications:Type 2 diabetes mellitus without complication, without long-term current use of insulin (CMS/HCC V24, CMS/HCC V28),Bilateral shoulder region arthritis,Diabeti c polyneuropathy associated with type 2 diabetes mellitus (CMS/HCC V24, CMS/HCC V28) Apply 1 patch topically every 12 (twelve) hours. Remove before bedtime. 30 patch 05/30/19 25 Active DULoxetine (CYMBALTA) [address] capsuleIndication s:Type 2 diabetes mellitus without complication, without long-term current use of insulin (CMS/HCC V24, CMS/HCC V28),Depression, unspecified depression type,Bilateral shoulder region arthritis,Diabeti c polyneuropathy associated with type 2 diabetes mellitus (CMS/HCC V24, CMS/HCC V28) Take 1 capsule (20 mg total) by mouth 2 (two) times a day. Do not crush or chew. 60 each 05/30/19 25 Active SUMAtriptan (IMITREX) 25 mg tabletIndications :Left-sided headache Take 1 tablet (25 mg total) by mouth 1 (one) time if needed for migraine. May repeat dose once in 2 hours if no relief. Do not exceed 2 doses in 24 hours. 27 tablet 3 08/09/19 25 026 Active fluticasone propion-salmetero L (Advair Diskus) 500-50 mcg/dose diskus inhaler Inhale 1 puff by mouth 2 (two) times a day. 1 each 08/09/19 25 Active albuterol HFA (PROAIR HFA ; PROVENTIL HFA ; VENTOLIN HFA) 90 mcg/actuation inhaler Inhale 2 puffs by mouth every 4 (four) hours if needed for wheezing. 6.7 g 11 08/09/19 25 Active busPIRone (BUSPAR) 5 mg tabletIndications :Panic attack Take 1 tablet (5 mg total) by mouth 2 (two) times a day if needed (anxiety). 60 each 11 08/26/19 25 026 Active hydrOXYzine HCL (ATARAX) 10 mg tablet Take 1 tablet (10 mg total) by mouth at bedtime as needed for anxiety. 30 tablet 08/26/19 25 Active albuterol 2.5 mg /3 mL (0.083 %) nebulizer solution USE 1 VIAL IN NEBULIZER EVERY 4 HOURS - and as needed 180 each 09/24/19 25 Active nystatin (MYCOSTATIN) 100,000 unit/gram powderIndications :Intertrigo Apply thin layer to affected area twice daily until rash resolves. 30 g 12/01/19 25 Active loratadine (CLARITIN) 10 mg tabletIndications :Allergic dermatitis Take 1 tablet (10 mg total) by mouth 1 (one) time each day. 30 each 2 12/01/19 25 Active cholecalciferol (VITAMIN D-3) 50 mcg (2,000 unit) tablet Take 1 tablet (2,000 Units total) by mouth 1 (one) time each day. 90 tablet 3 12/08/19 25 Active cyclobenzaprine (FLEXERIL) 10 mg tablet Take 1 tablet (10 mg total) by mouth 3 (three) times a day if needed for muscle spasms for up to 10 days. 15 tablet 02/24/20 25 Active metFORMIN XR (GLUCOPHAGE-XR) 500 mg 24 hr tablet Take 1 tablet (500 mg total) by mouth 1 (one) time each day. 60 tablet 1 03/07/20 25 Active ezetimibe (ZETIA) 10 mg tabletIndications :Hyperlipidemia, unspecified hyperlipidemia type TAKE 1 TABLET(10 MG) BY MOUTH 1 TIME EACH DAY 90 tablet 1 03/23/20 25 Active ezetimibe (ZETIA) 10 mg tabletIndications :Hyperlipidemia, unspecified hyperlipidemia type TAKE 1 TABLET(10 MG) BY MOUTH 1 TIME EACH DAY 30 tablet 1 11/15/19 25 12/18/2 025 Discontinued metFORMIN XR (GLUCOPHAGE-XR) 500 mg 24 hr tablet Take 1 tablet (500 mg total) by mouth 2 (two) times a day with meals. Do not crush, chew, or split. 60 each 5 12/01/19 25 025 Discontinued benzonatate (TESSALON) 200 mg capsule Take 1 capsule (200 mg total) by mouth 3 (three) times a day if needed for cough for up to 7 days. Do not crush or chew. 20 capsule 02/24/20 25 025 acetaminophen (TYLENOL) 500 mg tablet Take 2 tablets (1,000 mg total) by mouth every 6 (six) hours if needed for mild pain for up to 10 days. 30 tablet 02/24/20 25 025 Active Problems Problem Noted Date Diagnosed Date Type 2 diabetes mellitus, [facility] long-term current use of insulin 03/31/2024 Varicose vein of leg 01/21/2024 Chronic pelvic pain in female 01/21/2024 Low back pain 01/21/2024 Bilateral shoulder pain 01/21/2024 Leg swelling 01/21/2024 Nicotine use disorder 01/21/2024 Somatoform pain disorder 01/21/2024 Obstructive sleep apnea 08/12/2021 Overview (01/21/2024): [facility] Diagnostic Polysomnogram 07/11/2021. Weight 154; BMI 30. AHI 7. Obstructive apneas 3; Hypopneas 19. Average oxygen sat 95% with oxygen lisa 85%. MARK - Mild with mostly hypopneas and without nocturnal hypoxemia based on 2021 diagnostic polysomnogram. Adverse drug effect 07/31/2020 Atypical pneumonia 07/31/2020 Smoker 07/31/2020 UTI (urinary tract infection) 07/31/2020 Dizziness 11/10/2019 Elevated glucose level 11/26/2018 Helicobacter pylori infection 10/09/2017 Overview (01/21/2024): tx with prevpac Anxiety 08/07/2016 GERD (gastroesophageal reflux disease) 7 Varicose veins of both lower extremities 016 Hypertriglyceridemia 07/03/2015 Migraine headache 03/20/2015 Restless legs syndrome (RLS) 03/20/2015 Gallbladder polyp 07/14/2013 Overview (01/21/2024): 8/13- 4 mm adherent gallstone versus gallbladder polyp Asthma 11/26/2012 Back pain, chronic 11/26/2012 Overview (01/21/2024): Mri paramedia disc herniation [id number] were not effective.PT worsened the pain. Failed multiple meds Memory change 11/26/2012 Overview (01/21/2024): Seeing neuro.dr izaguirre Depression 07/02/2011 Overview (01/21/2024): Was discharged from psych since pt was noncompliant Encounters Date Type Department Care Team Description 02/23/2025 2:10 PM EST - 02/23/2025 5:04 PM EST Emergency [facility] Emergency [address] [place] [address] Scotty Rascon MD Acute bronchitis, unspecified organism (Primary Dx) Discharge Disposition: Home or Self Care 12/30/2024 3:00 PM EDT Office Visit Internal Medicine - [place] [address] [facility] [address] [place] [address] Theresa Simpson NP Intractable migraine with status migrainosus, unspecified migraine type (Primary Dx); Brain mass; Elevated lipase; Type 2 diabetes mellitus without complication, without long-term current use of insulin ([facility] V24, [facility] V28) from Last 3 Months Immunizations Immunization Administration Dates Next Due Influenza trivalent, with pr eservative (Fluzone; Afluria) 6mo and older 01/08/2010 Influenza, live, intranasal, quadrivalent (FluMist) 2yo to less than 50yo 01/23/2021 Moderna SARS-CoV-2 COVID-19, mRNA, LNP-S, preservative free 03/07/2021,06/08/2020,05/12/2020 Pneumococcal polysaccharide 23 valent (Pneumovax 23) 2yo and older 11/16/2014 Tdap Tetanus diptheria acell ular pertussis (Boostrix; Adacel) 7yo and older 03/20/2015,07/09/2009,07/09/2009 Surgical History Surgery Date Site/Laterality Comments APPENDECTOMY PROCEDURE: HISTORICAL APPENDECTOMY SECTION PROCEDURE: HISTORICAL DELIVERY SHOULDER SURGERY PROCEDURE: HISTORICAL SHOULDER SURGERY; COMMENT: arthroplasty Medical History Medical History Date Comments Anxiety 08/07/2016 DX:Anxiety Asthma 11/26/2012 DX:Asthma Back pain, chronic 11/26/2012 DX:Back pain, chronic; COMMENT: Mri paramedia disc herniation [id number] were not effective.PT worsened the pain. Failed multiple meds Depression 11/26/2012 DX:Depression; C OMMENT: Was discharged from psych since pt was noncompliant Gallbladder polyp 07/14/2013 DX:Gallbladder polyp; COMMENT: 11/16- 4 mm adherent gallstone versus gallbladder polyp GERD (gastroesophageal reflux disease) 08/07/2016 DX:GERD (gastroesophageal reflux disease) Hypertriglyceridemia 07/03/2015 DX:Hypertri glyceridemia Memory change 11/26/2012 DX:Memory change ; COMMENT: Seeing neuro.dr izaguirre Migraine headache 03/20/2015 DX:Migraine he adache Restless legs syndrome (RLS) 03/20/2015 DX: Restless legs syndrome (RLS) Varicose veins of both lower extremities 09/20/19 16 DX:Varicose veins of both lower extremities Family History Medical History Relation Name Comments Hyperlipidemia Father Relation Name Status Comments Brother Alive 2,healthy Father Alive copd Mother coma,seizure as thma Social History Tobacco Use Types Packs/Day Years Used Date Smoking Tobacco: Every Day Cigarettes Smokeless Tobacco: Never Tobacco Cessation:Ready to Q uit: Not Asked; Counseling Given: Not Answered Alcohol Use Standard Drinks/Week Comments Not Currently 0 (1 standard drink = 0.6 oz pur e alcohol) Comments No Sex and Gender Information Value Date Recorded Sex Assigned at Not on file Legal Sex Female 10:48 PM EST Gender Identity Not on file Sexual Orientation Not on file Last Filed Vital Signs Vital Sign Reading Time Taken Comments Blood Pressure 115/79 02/23/2025 2:04 PM EST Pulse 82 02/23/2025 2:04 PM EST Temperature 36.9 C (98.4 F) 02/23/2025 2:04 PM EST Respiratory Rate 16 02/23/2025 2:04 PM EST Oxygen Saturation 96% 02/23/2025 2:04 PM EST Inhaled Oxygen Concentration - - Weight 65.8 kg (145 lb) 02/23/2025 1:48 PM EST Height 152.4 cm (5') 02/23/2025 1:48 PM EST Body Mass Index 28.32 02/23/2025 1:48 PM EST Plan of Treatment Upcoming Encounters Date Type Department Care Team (Late st Contact Info) Description 05/12/2025 10:20 AM EST Office Visit [facility] [address] [place] [address] Dr Vel[address] [place] [phone] Amarjit Graff MD [address] [place] [address] Dr [address] [place] [address] 06/21/2025 1:40 PM EDT Consult Gastroenterology - [address] [facility] [address] [place] [id number] Francoise Jung, RAFFAELE [address] [facility] [address] [place] [address] Health Maintenance Due Date Last Done Comments Diabetes: Annual Foot Exam 1986 Hepatitis B Vaccines (1 of 3 - 19+ 3-dose series) 09/12/1995 Cervical Cancer Screening: Pap Smear 1997 Pneumococcal Vaccine: Pediatrics (0 to 5 Years) and At-Risk Patients (6 to 49 Years) (2 of 2 - PCV) 11/17/2015 11/16/2014 HIV Screening 03/15/2022 Hepatitis C Screening 03/15/2022 Medicare Annual Wellness Visit 03/15/2022 Social Influencers of Health Screening 03/15/2022 Depression Screening 04/06/2024 Diabetes: Annual Retina Eye Exam 09/01/2024 09/02/2023 COVID-19 Vaccine ( season) 2024 01/12/2024, 03/07/2021, 06/08/2020, Additional history exists Influenza Vaccine (#1) 2024 , 01/23/2021, 01/25/2020, Additional history exists Diabetes: Blood Sugar Control Test (HGBA1C) 01/28/2025 07/29/2024, 04/15/2024, 10/15/2023, Additional history exists DTaP,Tdap,and Td Vaccines (4 - Td or Tdap) 03/20/2025 03/20/2015, 07/09/2009, 07/09/2009 Diabetes: Annual Urine Albumin-Creatinine Ratio (uACR) 07/29/2025 07/29/2024 Diabetes: Annual GFR (Glomerular Filtration Rate) 07/29/2025 07/29/2024, 04/15/2024, 06/05/2023 Breast Cancer Screening 07/21/2026 07/21/2024 Cholesterol Screening (Lipid Panel) 07/29/2029 07/29/2024, 06/05/2023 Colorectal Cancer Screening: Colonoscopy 02/03/2033 02/03/2023 RSV Immunization Adult Patients (1 - 1-dose 75+ series) 09/12/2051 HIB Vaccines Aged Out No longer eligi ble based on patient's age to complete this topic HPV Vaccines Aged Out No longer eligi ble based on patient's age to complete this topic Hepatitis A Vaccines Aged Out No long er eligible based on patient's age to complete this topic IPV Vaccines Aged Out No longer eligi ble based on patient's age to complete this topic MMR Vaccines Aged Out No longer eligi ble based on patient's age to complete this topic Meningococcal ACWY Vaccine Aged Out N o longer eligible based on patient's age to complete this topic Meningococcal B Vaccine Aged Out No l onger eligible based on patient's age to complete this topic RSV Immunization Patients Under 20 months Aged Out No longer eligible based on patient's age to complete this topic Varicella Vaccines Aged Out No longer eligible based on patient's age to complete this topic Procedures Procedure Name Priority Date/Time Associated Diagnosis Comments XR CHEST 2 VIEWS STAT 02/23/2025 3:29 PM EST [id number], RSV, FLU A AND B QUALITATIVE RT-PCR, INTERNAL LAB STAT 02/23/2025 3:15 PM EST MICROALBUMIN CREATININE URINE RATIO Routine 07/29/2024 8:57 AM EDT Type 2 diabetes mellitus with other specified complication, without long-term current use of insulin ([facility] V24, CMS/[facility] V28) CREATININE, SERUM Routine 07/29/2024 8:5 1 AM EDT Type 2 diabetes mellitus with other specified complication, without long-term current use of insulin (CMS/[facility] V24, CMS/[facility] V28) HEMOGLOBIN A1C Routine 07/29/2024 8:51 AM EDT Type 2 diabetes mellitus with other specified complication, without long-term current use of insulin (CMS/[facility] V24, CMS/[facility] V28) LIPID PANEL WITH REFLEX TO DIRECT LDL Routine 07/29/2024 8:51 AM EDT Diabetes mellitus (CMS/[facility] V24, CMS/[facility] V28) EXTERNAL MAMMOGRAM REPORT 07/21/2024 DIABETES EYE EXAM Routine 09/02/2023 COLONOSCOPY Routine 02/03/2023 from Last 3 Months or Most Recently Relevant to Health Maintenance Results * XR Chest 2 Views (02/23/2025 3:29 PM EST) Anatomical Region Laterality Modality Body Radiographic Shona ging 02/23/2025 3:47 PM EST Impressions 02/23/2025 3:47 PM EST FINDINGS/IMPRESSION: Normal heart size and pulmonary vascularity. Lungs are clear and costophrenic angles are sharp. No acute osseous abnormality. -------- FINAL REPORT -------- Dictated By: Sher Belcher Dictated Date: 02/23/2025 15:47 ET Assigned Physician: Sher Belcher Reviewed and Electronically Signed By: Sher Belcher Signed Date: 02/23/2025 15:47 ET Workstation ID: [id number] Transcribed By: Self Edit Transcribed Date: 02/23/2025 15:47 ET Narrative 02/23/2025 3:47 PM EST XR CHEST 2 VIEWS INDICATION: pain TECHNIQUE: XR CHEST 2 VIEWS COMPARISON: None Procedure Note Sher Belcher MD - 11/20/2025 XR CHEST 2 VIEWS INDICATION: pain TECHNIQUE: XR CHEST 2 VIEWS COMPARISON: None IMPRESSION: FINDINGS/IMPRESSION: Normal heart size and pulmonary vascularity. Lungsare clear and costophrenic angles are sharp. No acute osseousabnormality. -------- FINAL REPORT -------- Dictated By: Sher Belcher Dictated Date: 02/23/2025 15:47 ET Assigned Physician: Sher Belcher Reviewed and Electronically Signed By: Sher Belcher Signed Date: 02/23/2025 15:47 ET Workstation ID: [id number] Transcribed By: Self Edit Transcribed Date: 02/23/2025 15:47 ET Jose DIALLO IMG XR PROCEDURES Final Res ult * [id number], RSV, Influenza A and B qualitative RT-PCR (02/23/2025 3:15 PM EST) Influenza A PCR Not Detected Not Detected LAB MICROBIOLOGY METHOD 02/23/2025 4:[address] [facility] Influenza B PCR Not Detected Not Detected LAB MICROBIOLOGY METHOD 02/23/2025 4:[address] [facility] RSV PCR Not Detected Not Detected LAB MICROBIOLOGY METHOD 02/23/2025 4:[address] [facility] SARS COV-2 Not Detected Not Detected LAB MICROBIOLOGY METHOD 02/23/2025 4:[address] [facility] Swab Both anterior nares / Unknown Non-blood Collection / Unknown 02/23/2025 3:15 PM EST 02/23/2025 3:26 PM EST us Jose DIALLO LAB MICROBIOLOGY - GENERAL ORDERABLES Final Result [facility] [address] [place] [address], [place] [phone] * Microalbumin creatinine urine ratio (07/29/2024 8:57 AM EDT) Creatinine, Urine 288.0 mg/dL LAB CHEMISTRY METHOD 07/29/2024 11:[address] [facility] Microalb, Ur 25.0 0.0 - 29.0 mg/L LAB CHEMISTRY METHOD 07/29/2024 11:05 AM [facility] Microalb/Creat Ratio 9 <30 mg/g creat LAB CHEMISTRY METHOD 07/29/2024 11:05 AM [facility] Urine Urine specimen obtained by clean catch procedure / Unknown Non-blood Collection / Unknown 07/29/2024 8:57 AM EDT 07/29/2024 9:36 AM EDT us Varsha Stacy MD LAB URINE ORDERABLES Final Resul t [facility] [address] [place] [address], * (ABNORMAL) Lipid panel with reflex to direct LDL (07/29/2024 8:51 AM EDT) Cholesterol 193 0 - 200 mg/dL LAB CHEMISTRY METHOD 07/29/2024 10:36 AM [facility] Triglycerides 207(H) 0 - 150 mg/dL LAB CHEMISTRY METHOD 07/29/2024 10:36 AM [facility] HDL 32(L) >=40 mg/dL LAB CHEMISTRY METHOD 07/29/2024 10:36 AM [facility] LDL Calculated 120(H) 0 - 100 mg/dL LAB CHEMISTRY METHOD 07/29/2024 10:36 AM [facility] VLDL Cholesterol Silvino 41.4 mg/dL LAB CHEMISTRY METHOD 07/29/2024 10:36 AM [facility] Non HDL Chol. (LDL+VLDL) 161(H) <145 mg/dL LAB CHEMISTRY METHOD 07/29/2024 10:36 AM [facility] Chol/HDL Ratio 6.0(H) 0.0 - 4.4 LAB CHEMISTRY METHOD 07/29/2024 10:[address] [facility] Blood Venous blood specimen / Unknown Venipuncture / Unknown 07/29/2024 8:51 AM EDT 07/29/2024 9:35 AM EDT Varsha Stacy MD LAB BLOOD ORDERABLES Final Resul t Performing Organization Address [facility] de Phone Number [facility] [address] [place] [address], * Creatinine (07/29/2024 8:51 AM EDT) Creatinine 0.94 0.50 - 1.10 mg/dL LAB CHEMISTRY METHOD 07/29/2024 10:[address] [facility] eGFR 75 >=60 mL/min/1. 73m2 LAB CHEMISTRY METHOD 07/29/2024 10:[address] [facility] Comment:Calculation based on the Chronic Kidney Disease Epidemiology Collaboration (CKD-EPI) equation refit without adjustment for race. Blood Venous blood specimen / Unknown Venipuncture / Unknown 07/29/2024 8:51 AM EDT 07/29/2024 9:35 AM EDT Varsha Stacy MD LAB BLOOD ORDERABLES Final Resul t Performing Organization Address [facility] Co de Phone Number [facility] [address] [place] [address], [place] [phone] * (ABNORMAL) Hemoglobin A1c (07/29/2024 8:51 AM EDT) Hemoglobin A1C 6.8(H) <6.5 % LAB CHEMISTRY METHOD 07/29/2024 11:[address] [facility] Mean Bld Glu Estim. 148 mg/dL LAB CHEMISTRY METHOD 07/29/2024 11:[address] [facility] Blood Venous blood specimen / Unknown Venipuncture / Unknown 07/29/2024 8:51 AM EDT 07/29/2024 9:37 AM EDT Varsha Stacy MD LAB BLOOD ORDERABLES Final Resul t [facility] [address] [place] [address], [place] [phone] * External Mammogram Report (07/21/2024) Anatomical Region Laterality Modality Mammography Provider [facility] IMG BI PROCEDURES Final Result * Diabetes Eye Exam (09/02/2023) Diabetes: Annual Retina Eye Exam abstracted Historical Provider HEALTH MAINTENANCE Final Result * Colonoscopy (02/03/2023) Colonoscopy no interpretation , abstracted Anatomical Region Laterality Modality Other Historical Provider HEALTH MAINTENANCE Final Result from Last 3 Months or Most Recently Relevant to Health Maintenance Insurance [address] [place] [address] MEDICARE MEDICAID - [place] COMMERCIAL GENERIC Care Teams Slab Lifting Engineer Relationship Specialty Start Date End Date Cecilia Bhakta MD [address] [facility] [address] [place] [address] PCP - General Internal Medicine 11/25/18
--- OUTSIDE RECORDS SUMMARY | 2025-03-28 15:15 | XMS_ITS ---
Author Name [facility] Organization Unknown Care Team Organization Name Specialty Phone Email Start Date End Da [facility] 11/23/2024
== END 2025-03-28 16:32 | disposition home or self-care (01) ==
LOC: HO.HSM 14:01
PROVIDERS: PCP Internal Medicine; Visit Provider Psychiatry & Neurology Neurology
DX: G44.309 Post-traumatic headache, unspecified, not intractable (principal); E11.9 Type 2 diabetes mellitus without complications
CPT/HCPCS: 99205

== ENCOUNTER → 2025-03-28 14:00 | Outpatient (BNVA) | payer MEDICARE, MEDICAID, SELFPAY | PROVIDERS: PCP Internal Medicine; Visit Provider Psychiatry & Neurology Neurology | DX: G44.309 Post-traumatic headache, unspecified, not intractable (principal); E11.9 Type 2 diabetes mellitus without complications | CPT/HCPCS: 99202 ==